=== PATIENT | female | born 1960 | race Caucasian/White ===

== ENCOUNTER → 2020-04-05 | Outpatient (CLI) | payer MEDICARE | LOC: M.RAD 12:33 | PROVIDERS: ATTEND Internal Medicine | DX: M17.11 Unilateral primary osteoarthritis, right knee (principal); M25.462 Effusion, left knee; M85.88 Other specified disorders of bone density and structure, other site ==

== ENCOUNTER 2020-08-12 04:51 | Inpatient (IN) | payer MEDICARE ==
[~2020-08-12] VITALS: Ht 149.9 cm; Wt 108.4 kg
[2020-08-12 05:03] VITALS: BP 121/73
[2020-08-12] MEDS ORDERED: METFORMIN HCL500 M3 PO (05:08)
[2020-08-12] MEDS ORDERED: LIPITOR10 MG PO (05:09)
[2020-08-12] MEDS ORDERED: LISINOPRIL10 MG PO (05:09)
[2020-08-12 05:32] LABS: URINE BILIRUBIN NEGATIVE (Negative); URINE BLOOD NEGATIVE (Negative); URINE CLARITY CLEAR; URINE COLOR YELLOW; URINE GLUCOSE-RANDOM NEGATIVE (Negative); URINE KETONES NEGATIVE (Negative); URINE LEUKOCYTES-REFLEX 1+ (Negative); URINE NITRITE-REFLEX NEGATIVE (Negative); URINE PROTEIN NEGATIVE (Negative); URINE SPECIFIC GRAVITY 1.015 (1.005-1.030); URINE UROBILINOGEN 0.2 E.U./dl (0.2-1.0)
[2020-08-12 05:45] LABS: BACTERIA-REFLEX 1-9 Few /HPF (None Seen); CASTS None Seen /LPF (None Seen); CRYSTALS None Seen /LPF (None Seen); MUCUS 0-3 Light strn/LPF (None Seen); SQUAMOUS 0-3 Few /LPF (0-3); URINE RBC 0-2 Rare /HPF (0-2)
[2020-08-12 05:58] LABS: ABSOLUTE BASOPHILS 0.1 thou/uL (0.0-0.2); ABSOLUTE EOSINOPHILS 0.1 thou/uL (0.0-0.7); ABSOLUTE LYMPHOCYTES 0.9 thou/uL (0.8-5.3); ABSOLUTE MONOCYTES 0.5 thou/uL (0.0-1.2); ABSOLUTE NEUTROPHILS 8.4 thou/uL (1.6-8.1); BASOPHILS 0.9 %; EOSINOPHILS 1.1 %; HEMOGLOBIN 13.4 gm/dL (12.0-15.0); LYMPHOCYTES 9.2 %; MCH 26.4 pg (26.0-34.0); MCHC 32.7 g/dL (28.0-37.0); MCV 80.6 fL (80.0-100.0); MONOCYTES 5.1 %; MPV 8.8 fl. (7.2-11.1); NUCLEATED RBCS 0 /100WBC; PLATELET COUNT* 231 thou/uL (150-400); POLYS 83.7 %; RBC 5.08 mil/uL (4.20-5.00); RDW-CV 14.7 % (10.5-14.5); WBC 10.1 thou/uL (4.0-11.0)
[2020-08-12 06:00] LABS: CALCIUM 9.3 mg/dL (8.5-10.1); CREATININE 1.1 mg/dL (0.6-1.3); POTASSIUM 4.2 mmol/L (3.5-5.1)
[2020-08-12 06:03] LABS: APTT 26.5 Seconds (25.0-31.3); INR 1.1; PROTIME 11.2 Seconds (9.20-11.50)
[2020-08-12 06:04] LABS: ALBUMIN 3.5 g/dL (3.4-5.0); TOTAL BILIRUBIN 1.2 mg/dL (<0.1-1.0); TOTAL PROTEIN 7.2 g/dL (6.4-8.2)
--- NOTE | 2020-08-12 08:13 | NUR ---
ROMEL NOTIFIED UPON PT RETURN FROM CT. PT CONNECTED TO MONITOR
[2020-08-12 13:15] VITALS: BP 124/75
[2020-08-12 14:32] VITALS: BP 117/60
[2020-08-12 15:09] VITALS: BP 124/68
--- NOTE | 2020-08-12 15:14 | NUR ---
PT IN PRE OP AREA HOLDING AWAITING ROOM PLACEMENT. CALL LIGHT IN REACH. BED ALARM ON. PT SLEEPING INTERMITTENLY AND WATCHING TV INTERMITTENLY. INSTRUCTED TO CALL FOR ANY NEEDS. REPORTED RECEIVING PAIN MEDICATION IN ER, NO NEED FOR PAIN MEDICATION AT THIS TIME. AMBULATED TO BATHROOM WITH STEADY GAIT UPON ARRIVAL. VOIDED WITHOUT DIFFICULTY.
--- NOTE | 2020-08-12 16:21 | NUR ---
SISTER LAKIA CALLED FOR CONDITION UPDATE. UPDATE PROVIDED. SISTER ABLE TO PROVIDE INFORMATION REGARDING PT COGNITIVE LEVEL, REPORTING SHE IS "SLOW AND EMOTIONAL". SHE HAD A (COLON) POUCH APPROXIMATELY 20 YEARS AGO THAT WAS CONVERTED TO AN OSTOMY APPROXIMATELY 3 YEARS AGO. PT LIVES WITH SISTER AND MOM.
--- NOTE | 2020-08-12 17:11 | EKG ---
[place] [address] ELECTROCARDIOGRAM REPORT Name: JENNIFER GUEVARA Room: [place] [address] ADM IN [facility]#: [id number] Admission: 08/12/20 Attend Phys: Vijay Feng, Discharge: Date of : 64 Date of Service: 08/12/20 0502 Report #: [id number] THIS REPORT FOR: //name// [facility] ED Test Date: 2020-08-12 Test Time: 05:02:42 Pat Name: JENNIFER GUEVARA Department: Room: [facility] Gender: F Resawyer: BERNIE : 1960 Requested By: Cecile Moody Order Number: [id number] MD: Nicholas Aguilar Measurements Intervals [place] Rate: 92 P: 28 MI: 187 QRS: -39 QRSD: 93 T: 58 QT: 331 QTc: 410 Interpretive Statements Sinus rhythm RSR' in V1 or V2, probably normal variant Consider anterior infarct old No previous ECG available for comparison Electronically Signed On 08-12-2020 17:11:06 VEST BASTER by Nicholas Aguilar [email or web address] <ELECTRONICALLY SIGNED> By: Nicholas Aguilar MD, [facility] 08/12/20 1711 0502 0502 Nicholas Aguilar MD, [facility] /EPI
[2020-08-12 19:00] VITALS: BP 109/59; BP 120/71
--- NOTE | 2020-08-12 19:36 | NUR ---
TRANSFERRED PT TO ROOM 309. REMAINS NPO. EMESIS X2 OF SMALL AMOUNT YELLOW/GREEN. RECEIVED RELIEF FROM ZOFRAN AND FENTANYL. REPORT TO RN AT BEDSIDE.
[2020-08-13 04:43] LABS: ABSOLUTE EOSINOPHILS 0.1 thou/uL (0.0-0.7); ABSOLUTE LYMPHOCYTES 0.8 thou/uL (0.8-5.3); ABSOLUTE MONOCYTES 0.6 thou/uL (0.0-1.2); ABSOLUTE NEUTROPHILS 4.8 thou/uL (1.6-8.1); BASOPHILS 0.6 %; EOSINOPHILS 1.8 %; HEMATOCRIT 39.3 % (37.0-47.0); HEMOGLOBIN 13.1 gm/dL (12.0-15.0); LYMPHOCYTES 12.4 %; MCH 26.8 pg (26.0-34.0); MCHC 33.2 g/dL (28.0-37.0); MCV 80.5 fL (80.0-100.0); MONOCYTES 8.9 %; MPV 9.1 fl. (7.2-11.1); NUCLEATED RBCS 0 /100WBC; PLATELET COUNT* 194 thou/uL (150-400); POLYS 76.3 %; RBC 4.88 mil/uL (4.20-5.00); RDW-CV 14.5 % (10.5-14.5); WBC 6.3 thou/uL (4.0-11.0)
[2020-08-13 05:40] LABS: CALCIUM 8.9 mg/dL (8.5-10.1); CREATININE 1.1 mg/dL (0.6-1.3)
[2020-08-13 07:20] VITALS: BP 110/67
--- NOTE | 2020-08-13 08:30 | NUR ---
PATIENT HAS BEEN RESTLESS DURING THE NIGHT AND VERY ANXIOUS AND TEARFUL. PATIENT EXTREMELY NEEDY AND PRINCIPAL GIFTS OFFICER LIGHT EXCESSIVELY DURING THE NIGHT. VSS ON RA. PATIENT UP WITH ASSIST X 1 TO THE BATHROOM. PATIENT HAS REMAINED NPO. ILEOSTOMY WITH GREENISH COLORED STOOL. IV IN LEFT HAND-NS @ 100ML/HR. MEDICATIONS GIVEN ORDERED AND CHARTED. PATIENT INSTRUCTED TO USE CALL LIGHT WHEN NEEDING ASSISTANCE. HOURLY ROUNDS MADE. WILL CONTINUE WITH PLAN OF CARE AND NURSING TO MONITOR.
[2020-08-13 12:58] LABS: DIRECT BILIRUBIN 0.2 mg/dL (<0.1-0.3); TOTAL BILIRUBIN 0.8 mg/dL (<0.1-1.0)
[2020-08-13 16:11] VITALS: BP 118/59
--- NOTE | 2020-08-13 17:09 | NUR ---
PT REMAINED ALERT AND ORIENTED. PT C/O PAIN, MEDS GIVEN ORDERED. PT TOOK CARE OF ILEOSTOMY BY HERSELF. ASSISTED TO BATHROOM. IV INFILTRATED, NEW IV PLACED. HOURLY ROUNDING COMPLETED.
--- NOTE | 2020-08-13 17:42 | NUR ---
CM SPOKE WITH SISTER,LAKIA, ON PHONE. SHE SAID PT.LIVES WITH HER AND MOM. SHE IS INDEPENDENT. IS ABLE TO BATHE SELF AND DRESS. NO USE OF DME. SHE HAS A WALKER BUT DOESNT USE. SHE SAID SHE HAS ALWAYS BEEN SLOW AND VERY EMOTIONAL. 'THATS HOW SHES ALWAYS BEEN'. LAKIA SAID BOTH SHE AND HER MOM SPOKE WITH PT.ABOUT HAVING SURGERY AND SHE IS NOW AGREEABLE. THEY WOULD LIKE TO KNOW WHEN SHE WILL HAVE IT, IF SOMEONE WOULD CALL HER TOMORROW. TOLD HER THERE ARE NO PLANS YET FOR SURGERY BUT THAT COULD CHANGE IN THE AM. HAS NOT BEEN MADE MPO AFTER MN YET. CM WILL FOLLOW.
[2020-08-13 18:13] VITALS: BP 118/59
[2020-08-13 20:00] VITALS: BP 120/62
[2020-08-14 04:41] VITALS: BP 135/70
[2020-08-14 05:33] LABS: ABSOLUTE EOSINOPHILS 0.2 thou/uL (0.0-0.7); ABSOLUTE LYMPHOCYTES 0.6 thou/uL (0.8-5.3); ABSOLUTE MONOCYTES 0.3 thou/uL (0.0-1.2); ABSOLUTE NEUTROPHILS 2.2 thou/uL (1.6-8.1); BASOPHILS 0.7 %; EOSINOPHILS 6.4 %; HEMOGLOBIN 11.6 gm/dL (12.0-15.0); LYMPHOCYTES 18.4 %; MCH 26.9 pg (26.0-34.0); MCHC 33.1 g/dL (28.0-37.0); MCV 81.4 fL (80.0-100.0); MONOCYTES 9.3 %; MPV 8.8 fl. (7.2-11.1); NUCLEATED RBCS 0 /100WBC; PLATELET COUNT* 164 thou/uL (150-400); POLYS 65.2 %; RDW-CV 15.2 % (10.5-14.5); WBC 3.4 thou/uL (4.0-11.0)
--- NOTE | 2020-08-14 06:09 | NUR ---
PATIENT AWAKE OFF AND ON DURING THIS SHIFT. PT VERY TEARY EYED ABOUT SURGERY; SUPPORT GIVEN. MORPHINE 4MG IV GIVEN X3 DURING THIS SHIFT. PT WITH FLUIDS/ANTIBIOTICS INFUSING PER DR ORDER. PT ABLE TO PIVOT TO BSC TO VOID AND EMPTIES ILEOSTOMY. PT WITH LT HAND/FOREARM EDEMA FROM PREVIOUS IV SITE. NEW IV STARTED ON DAY SHIFT JUST ABOVE REDDENED SWOLLEN AREA. PT ENCOURAGED TO KEEP ARM ELEVATED. PT MADE NPO AT MIDNIGHT FOR LAP CESAR SCHEDULED TODAY. FREQUENTLY USED ITEMS AND CALL LIGHT WITHIN REACH. SIDERAILS UPX2. WILL CONTINUE TO MONITOR.
[2020-08-14 06:11] LABS: ALBUMIN 2.6 g/dL (3.4-5.0); CREATININE 1.1 mg/dL (0.6-1.3); POTASSIUM 3.5 mmol/L (3.5-5.1); TOTAL BILIRUBIN 0.7 mg/dL (<0.1-1.0); TOTAL PROTEIN 6.4 g/dL (6.4-8.2)
[2020-08-14 06:20] LABS: CALCIUM 8.5 mg/dL (8.5-10.1)
[2020-08-14 07:35] VITALS: BP 118/59; BP 150/79
[2020-08-14 12:09] VITALS: BP 118/59
--- NOTE | 2020-08-14 12:25 | NUR ---
NOTIFIED LAKIA,PTS SISTER,BY PHONE THAT PT.HAD GONE FOR SURGERY ABOUT 1200. SHE SAID SHE IS AT WORK BUT CAN COME AFTER SHE GETS OFF. TOLD HER PT.MAY BE BACK TO FLOOR ABOUT 3PM. SHE SAID WILL COME WHEN SHE GETS OFF IN AN HR.
--- NOTE | 2020-08-14 16:07 | NUR ---
PT RETURNED FROM SURGERY. PT ALERT AND ORIENTED. CAPNO IN PLACE WITH 3 LITERS O2. PAIN MEDS GIVEN ORDERED. PT RESTING IN BED. FALL RISK PRECAUTIONS IN PLACE.
[2020-08-14 16:10] VITALS: BP 123/73
--- NOTE | 2020-08-14 16:49 | NUR ---
PT REMAINED ALERT AND ORIENTED. PT RESTING IN BED. PT HAD STENT PLACED IN GALLBLADDER AND DRAIN PRESENT. PAIN MEDS GIVEN ORDERED. FALL RISK PRECAUTIONS IN PLACE. HOURLY ROUNDING COMPLETED.
[2020-08-14 20:00] VITALS: BP 127/63
--- NOTE | 2020-08-15 04:25 | NUR ---
PATIENT SLEPT WELL DURING THIS SHIFT. PT WITH O2 @ 3LITERS WITH CAPNO IN PLACE. PT WITH FLUIDS/ANTIBIOTICS INFUSING PER DR ORDER. PT REQUESTED PAIN MEDICATION X3. PT REFUSING TURNS SAYING SHE IS ABLE TO REPOSITION HERSELF. PT WITH GREEN STOOL FROM OSTOMY BAG. PT VOIDED SMALL AMOUNTS AT A TIME ON BSC. LAP SITES WITH STERI STRIPS; C/D/I. BLOOD SUGAR AT 2100 = 160; HUMALOG 3UNITS GIVEN. FREQUENTLY USED ITEMS AND CALL LIGHT WITHIN REACH. SIDERAILS UPX3 AND BED ALARM ON. WILL CONTINUE TO MONITOR.
[2020-08-15 08:22] VITALS: BP 124/68
--- NOTE | 2020-08-15 16:15 | NUR ---
PT.HAD LAP CESAR YESTERDAY. ON 3L/NC 02. DOES NOT WEAR O2 AT HOME. ON REGULAR DIET. ENCOURAGED TO BE UP WITH ASSIST OR IN HALLS WITH ASSIST.
[2020-08-15 16:20] VITALS: BP 158/62
--- NOTE | 2020-08-15 18:45 | NUR ---
PATIENT CURRENTLY LYING IN BED RESTING; HAS REMAINED A&OX4 THIS SHIFT AND HAS SLEPT MOST OF THIS SHIFT. PATIENT HAS NOT WANTED TO EAT MEALS SHE STATES "IT HURTS". ABDOMINAL DRESSING CHANGED PER DR. SHULTZ REQUEST. PATIENT NO LONGER ON OXYGEN AND SATURATIONS ARE WNL. CALL LIGHT AND FREQUENTLY USED ITEMS WITHIN REACH.
[2020-08-15 20:00] VITALS: BP 112/74
[2020-08-16] VITALS: BP 104/56
--- NOTE | 2020-08-16 04:46 | NUR ---
PT A&O, ANXIOUS AND TEARFUL. NO C/O NAUSEA VOMITIING. PAIN MANAGED WITH NORCO. RLQ ROBERT DRAIN IN PLACE. DRESSING INTACT. UP TO BSC WITH SBA. IVF INFUISING. CALL LIGHT WITHIN REACH. WILL CONTINUE TO MONITOR.
[2020-08-16 04:58] LABS: HEMATOCRIT 36.3 % (37.0-47.0); HEMOGLOBIN 12.2 gm/dL (12.0-15.0); MCHC 33.7 g/dL (28.0-37.0); MCV 80.2 fL (80.0-100.0); MPV 8.7 fl. (7.2-11.1); RBC 4.53 mil/uL (4.20-5.00); RDW-CV 14.6 % (10.5-14.5); WBC 4.6 thou/uL (4.0-11.0)
[2020-08-16 05:14] LABS: CALCIUM 7.8 mg/dL (8.5-10.1); CREATININE 1.2 mg/dL (0.6-1.3); POTASSIUM 3.8 mmol/L (3.5-5.1)
[2020-08-16 08:08] VITALS: BP 118/73
--- NOTE | 2020-08-16 08:56 | OP ---
[facility] [address] [place] [address] OPERATIVE REPORT Name: JENNIFER GUEVARA Room: [address] IN M.R.#: [id number] Admission: 08/12/20 Attend Phys: Vijay Feng MD Discharge: Date of : 64 Report #: [id number] THIS REPORT FOR: cc: Mary Winn MD, Lin W. MD ~ Wili Crawford MD DATE OF SERVICE: 08/14/2020 PREOPERATIVE DIAGNOSIS: Acute cholecystitis. POSTOPERATIVE DIAGNOSIS: Acute cholecystitis. OPERATION: Laparoscopic cholecystostomy. SURGEON: Wili Crawford MD. ANESTHESIA: General. ESTIMATED BLOOD LOSS: Minimal. SPECIMEN: None. DESCRIPTION OF PROCEDURE: After informed consent was obtained, the patient was brought to the operating room and placed supine. SCDs were placed and working, preoperative antibiotics were administered, general anesthesia was induced. The abdomen was prepped and draped in the usual sterile fashion. A 1 mm incision was made in the right upper quadrant. Veress needle was inserted. Pneumoperitoneum was established. I was then able to place a supraumbilical 5 mm trocar under direct vision. Two right-sided 5 mm trocars were placed as well. The gallbladder was visualized. This was noted to be a very inflamed and hydropic and enlarged consistent with the CT scan. I tried to grasp it, but given the patient's anatomy and the large size of the gallbladder, I was not able to get any sort of lift on the gallbladder. Given the degree of inflammation, I thought the best thing was to perform a cholecystostomy thereby preventing injury to the common bile duct. A small hole was made in the gallbladder. A 10-[place] Citizen drain was placed through one of the laparoscopic ports. It was then threaded into the gallbladder. The ports were then removed under direct vision. The drain was secured with a nylon suture. The skin was closed with 4-0 Monocryl. Incisions were dressed with Steri-Strips. COMPLICATIONS: [place] [address] OPERATIVE REPORT Name: JENNIFER GUEVARA Room: [address] IN [facility]#: [id number] Admission: 08/12/20 Attend Phys: Vijay Feng MD Discharge: Date of : 64 Report #: [id number] DISPOSITION: The patient was taken to recovery in satisfactory condition. <ELECTRONICALLY SIGNED> By: Wili Crawford MD 08/16/20 0856 1427 1502Wili Crawford MD /nt
[2020-08-16] MEDS ORDERED: AUGMENTIN 875-1 EACH PO (12:42)
[2020-08-16] MEDS ORDERED: HYDROCODON-ACE1 EAC7 PO (13:07)
--- NOTE | 2020-08-16 15:13 | NUR ---
PT.TO DISCHARGE TODAY. NOTIFIED SISTER LAKIA. SHE WILL COME TO PICK HER UP IN ABOUT 2 HRS. EXPLAINED NURSE WILL SHOW HER HOW TO EMPTY DRAIN WHEN SHE GETS HERE. PT.WILL HAVE X 1 WEEK UNTIL SHE FOLLOWS UP WITH SURGEON.
[2020-08-16 15:18] VITALS: BP 118/73
[2020-08-16 15:56] VITALS: BP 118/73
--- NOTE | 2020-08-16 16:52 | NUR ---
PATIENT/SISTER GIVEN DISCHARGE INSTRUCTIONS AND PRESCRIPTIONS FOR AUMGENTING AND NORCO, ALSO, PROVIDED INFO SHEETS ON BOTH MEDICATIONS. SISTER/PATIENT SHOWN HOW TO EMPTY ROBERT DRAIN, VERBALIZED UNDERSTANDING. IV REMOVED. PATIENT LEFT UNIT WITH PERSONAL BELONGINGS VIA WHEELCHAIR ACCOMPANIED BY NURSING STAFF AND SISTER AT APPROX. 1650.
== END 2020-08-16 16:50 | disposition home or self-care (01) | DRG 418 ==
LOC: M.ERS 04:51 → M.3W 09:04 → M.TBA-ER 09:04 → M.ORTHSURG 20:00 → M.3W 20:23
PROVIDERS: Family Medicine; Personal Emergency Response Attendant; ADMIT Internal Medicine; ATTEND Internal Medicine
PROC: 0FT44ZZ Resection of Gallbladder, Percutaneous Endoscopic Approach (ICD-10-PCS; principal; 2020-08-14)
DX: K81.0 Acute cholecystitis (principal); R65.10 Systemic inflammatory response syndrome (SIRS) of non-infectious origin without acute organ dysfunction; Z68.42 Body mass index [BMI] 45.0-49.9, adult; E66.01 Morbid (severe) obesity due to excess calories; I10 Essential (primary) hypertension; E78.5 Hyperlipidemia, unspecified; F79 Unspecified intellectual disabilities; E11.9 Type 2 diabetes mellitus without complications; F41.9 Anxiety disorder, unspecified; F43.9 Reaction to severe stress, unspecified; Z20.822 Contact with and (suspected) exposure to COVID-19; Z85.038 Personal history of other malignant neoplasm of large intestine; Z79.899 Other long term (current) drug therapy

== ENCOUNTER 2020-11-25 23:40 | Inpatient (IN) | payer MEDICARE ==
[~2020-11-25] VITALS: Ht 149.9 cm; Wt 54.4 kg
[~2020-11-25 23:40] MED LIST: AUGMENTIN 875-1 EACH PO; HYDROCODON-ACE1 EAC7 PO; LIPITOR10 MG PO; LISINOPRIL10 MG PO; METFORMIN HCL500 M3 PO
[2020-11-25 23:58] VITALS: BP 137/74
[2020-11-26 00:43] LABS: URINE BILIRUBIN NEGATIVE (Negative); URINE BLOOD 3+ (Negative); URINE CLARITY SL CLOUDY; URINE COLOR YELLOW; URINE GLUCOSE-RANDOM NEGATIVE (Negative); URINE KETONES NEGATIVE (Negative); URINE PROTEIN 2+ (Negative); URINE UROBILINOGEN 0.2 E.U./dl (0.2-1.0)
[2020-11-26 00:46] LABS: URINE LEUKOCYTES-REFLEX 2+ (Negative); URINE NITRITE-REFLEX POSITIVE (Negative)
[2020-11-26 01:02] LABS: ABSOLUTE BASOPHILS 0.1 thou/uL (0.0-0.2); ABSOLUTE EOSINOPHILS 0.2 thou/uL (0.0-0.7); ABSOLUTE LYMPHOCYTES 0.8 thou/uL (0.8-5.3); ABSOLUTE MONOCYTES 0.4 thou/uL (0.0-1.2); ABSOLUTE NEUTROPHILS 4.3 thou/uL (1.6-8.1); BASOPHILS 1.1 %; EOSINOPHILS 2.7 %; HEMATOCRIT 37.4 % (37.0-47.0); HEMOGLOBIN 12.4 gm/dL (12.0-15.0); LYMPHOCYTES 13.3 %; MCH 26.8 pg (26.0-34.0); MCHC 33.2 g/dL (28.0-37.0); MCV 80.7 fL (80.0-100.0); MONOCYTES 7.8 %; MPV 7.2 fl. (7.2-11.1); NUCLEATED RBCS 0 /100WBC; PLATELET COUNT* 243 thou/uL (150-400); POLYS 75.1 %; RBC 4.63 mil/uL (4.20-5.00); WBC 5.7 thou/uL (4.0-11.0)
[2020-11-26 01:10] LABS: CALCIUM 9.2 mg/dL (8.5-10.1); POTASSIUM 4.3 mmol/L (3.5-5.1)
[2020-11-26 01:36] LABS: CASTS None Seen /LPF (None Seen); SQUAMOUS 4-10 Moderate /LPF (0-3); URINE WBC-REFLEX >25 Many /HPF (0-5)
[2020-11-26 01:37] LABS: CRYSTALS None Seen /LPF (None Seen)
--- NOTE | 2020-11-26 08:11 | NUR ---
PT REQUESTING FOR THIS NURSE TO CALL HER MOTHER, AMARIS GUEVARA [phone] TO GIVE HER AN UPDATE.
[2020-11-26 08:59] VITALS: BP 155/74
--- NOTE | 2020-11-26 10:45 | NUR ---
PT ADMITTED WITH UTI AND KIDNEY STONE. PT ALERT AND ORIENTED. PT ORIENTED TO ROOM. UROLOGY CONSULT BEING CALLED IN, AWAITING ANSWERING SERVICE TO ANSWER.
[2020-11-26 10:48] VITALS: BP 144/58
--- NOTE | 2020-11-26 17:57 | NUR ---
PT REMAINED ALERT AND ORIENTED. PT TEARFUL DURING SHIFT AND ANXIOUS TO GET STONES OUT. PROCEDURE AT 1600, PT OFF UNIT AWAITING PT TO RETURN FROM RECOVERY. FAMILY AT BEDSIDE.
[2020-11-26 18:42] VITALS: BP 145/67
[2020-11-27 00:24] VITALS: BP 124/60
[2020-11-27 04:42] VITALS: BP 114/71
[2020-11-27 04:55] LABS: HEMATOCRIT 34.2 % (37.0-47.0); HEMOGLOBIN 11.5 gm/dL (12.0-15.0); MCH 26.9 pg (26.0-34.0); MCHC 33.6 g/dL (28.0-37.0); MCV 80.3 fL (80.0-100.0); MPV 7.9 fl. (7.2-11.1); RBC 4.26 mil/uL (4.20-5.00); RDW-CV 15.9 % (10.5-14.5); WBC 6.5 thou/uL (4.0-11.0)
--- NOTE | 2020-11-27 04:59 | NUR ---
PATIENT SLEPT WELL DURING THIS SHIFT. [facility] US[facility] FOR [facility] TO B[facility]. PT VOIDS RED URINE. URINE STRAINED AND NO STONES RETRIEVED. PT ON O2 @ 2 LITERS PER NASAL CANNULA. FLUIDS INFUSING PER DR ORDER. PT WITH COLOSTOMY ON LT QUAD; PT DOES SELF CARE. PT REQUESTED PAIN MEDICATION AND RECEIVED FENTANYL IV X2. FREQUENTLY USED ITEMS AND CALL LIGHT WITHIN REACH. SIDERAILS UPX2 AND BED ALARM ON. WILL CONTINUE TO MONITOR.
[2020-11-27 05:20] LABS: ALBUMIN 3.1 g/dL (3.4-5.0); CALCIUM 8.4 mg/dL (8.5-10.1); CREATININE 1.2 mg/dL (0.6-1.3); MAGNESIUM 1.5 mg/dL (1.8-2.4); POTASSIUM 4.1 mmol/L (3.5-5.1); TOTAL BILIRUBIN 0.4 mg/dL (<0.1-1.0); TOTAL PROTEIN 7.3 g/dL (6.4-8.2)
[2020-11-27 07:15] VITALS: BP 121/71
--- NOTE | 2020-11-27 11:51 | NUR ---
Pt is A&O. Resides at home with sister, FRED and mom. Independent. Pt states that she has a walker but doesn't use it. Hx of HH. Hx of SNF in [place]. Goal is home at dc, unsure if she will need HH at dc, CM to follow. Monitor pain control. Anticipate dc in a few days.
[2020-11-27 17:31] VITALS: BP 150/90
--- NOTE | 2020-11-27 18:25 | NUR ---
ASSUMED CARE OF PATIENT AT 1500, RECEIVED REPORT FROM BRISA. PATIENT RESTING IN BED. PATIENT HAS COMPLAINTS OF FLANK PAIN, TREATED ADEQUATELY WITH OXYCODONE. PATIENT HAS EXCELLENT APPETITE. PATIENT IS UP AD SHYLA TO COMMODE. PATIENT IS TEARFUL. PATIENT DENIES ANY NEEDS AT THIS TIME. CALL LIGHT WITHIN REACH.
[2020-11-27 20:30] VITALS: BP 137/67
[2020-11-28 04:28] VITALS: BP 116/60
--- NOTE | 2020-11-28 07:34 | NUR ---
PATIENT HAS SLEPT MOST OF THE NIGHT. VSS ON RA, ALTHOUGH PATIENT HAD ELEVATED TEMP AND GIVEN TYLENOL. TEMP CAME DOWN TO 98.9. MEDICATIONS GIVEN ORDERED AND CHARTED. COLOSTOMY IN PLACE AND PATIENT DOES SELF CARE. PATIENT UP TO BSC. IV IN LEFT AC-SL. PATIENT TEARFUL WHEN AWAKE. PATIENT INSTRUCTED TO USE CALL LIGHT WHEN NEEDING ASSISTANCE. HOURLY ROUNDS MADE. WILL CONTINUE WITH PLAN OF CARE AND NURSING TO MONITOR.
[2020-11-28 07:40] VITALS: BP 140/70
[2020-11-28] MEDS ORDERED: FLOMAX0.4 MG PO (09:29)
[2020-11-28] MEDS ORDERED: LORAZEPAM 0.50.5 MG PO (09:29)
[2020-11-28] MEDS ORDERED: OXYCODONE HCL 55 MG PO (09:29)
[2020-11-28] MEDS ORDERED: CIPRO500 M1 PO (09:29)
[2020-11-28 11:21] VITALS: BP 140/70
--- NOTE | 2020-11-28 14:58 | OP ---
[address] [address] OPERATIVE REPORT Name: JENNIFER GUEVARA Room: [address] IN M.R.#: [id number] Admission: 11/27/20 Attend Phys: Pj Cruz Discharge: Date of : 64 Report #: [id number] THIS REPORT FOR: cc: Mary Winn MD, Lin W. MD Haggard, Kent L MD ~ DOC #: [id number] Rajendra Patel MD DATE OF SURGERY: 11/26/2020 PREOPERATIVE DIAGNOSES: A 5 mm distal left ureteral stone and 6 mm proximal right ureteral stone. POSTOPERATIVE DIAGNOSES: A 5 mm distal left ureteral stone and 6 mm proximal right ureteral stone. PROCEDURE PERFORMED: Cystoscopy, left ureteroscopy with stone extraction, placement of left ureteral stent, right ureteroscopy with right ureteral stent. STAFF SURGEON: Rajendra Patel MD SYRUP MAKER COOK: None. ANESTHESIA: General. ESTIMATED BLOOD LOSS: None. COMPLICATIONS: None. SPECIMENS: Left ureteral stone fragment. DRAINS: A 28 cm x 4.8-V[place] Citizen left ureteral stent and a 28 x 6-[place] Citizen right ureteral stent. INDICATIONS FOR PROCEDURE: The patient is a pleasant 60-year-old female with history of kidney stones, presented with acute onset of left flank pain. She presented to [facility] where she was diagnosed with bilateral ureteral stones. We were consulted to assist and manage evaluation. She was counseled regarding treatment options, elected for definitive cystoscopy, bilateral retrograde pyelograms, bilateral ureteroscopy, possible holmium laser lithotripsy, possible placement of bilateral ureteral stents. After the risks and benefits of the procedure explained, an informed consent was obtained. DESCRIPTION OF PROCEDURE: The patient was taken to the operating room comfortably placed in the dorsal lithotomy position under adequate general anesthesia. She was sterilely prepped and [place] [address] OPERATIVE REPORT Name: JENNIFER GUEVARA Room: [address] IN [facility]#: [id number] Admission: 11/27/20 Attend Phys: Pj Cruz Discharge: Date of : 64 Report #: [id number] only genitalia. She is up to date on antibiotic therapy. An appropriate timeout was carried out and all were in agreement. A 22-[place] Citizen cystoscope with the obturator in place was inserted into the urethra. Obturator was removed, draining clear tobi colored urine. Bladder was systematically viewed. Both ureteral orifices identified normal. No bladder calculi seen or foreign body observed. I attempted to cannulate the left ureteral orifice, there was kind of a posterior angulation and was hard to cannulate. So, the cystoscope was removed and a 4.5 [place] Citizen tapered to 6.5 [place] Citizen [place] semi-rigid ureteroscope, it was placed through the urethra up the left ureter and engaged the stone to identify, it was kind of pushed it into the distal ureter, it was more dilated. We went ahead and scoped the rest of the ureter up in the proximal ureter. The scope was tapered so it kind of gently dilated the transmural ureter. An 0.035 Glidewire was placed through the ureteroscope. The ureteroscope was removed leaving the guidewire in place. Semirigid scope was placed through the urethra up the left ureter to the level of the stone. A 2.4 [place] Citizen flat wire basket was used to engage the stone, slowly removed it intact without difficulty. This was sent off for analysis. Repeat ureteroscopy showed no damage to the ureter. Ureteroscope was removed and a 28 cm x 4.8 [place] Citizen ureteral stent was put in place, positioned with a good coil in left renal pelvis, good coil in the bladder. Attention was then turned to the right ureteral orifice, again it was kind of anteriorly, laterally oriented. Rather than trying cannulate this, I went ahead and just used the semi-rigid ureteroscope, placed through the urethra up the left ureter and slowly advanced it through the transmural ureter up the ureter about the iliac vessels, but really could not get any further. 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 I could not really get the ureteroscope past the iliac vessels. An 0.035 Glidewire was advanced up the right ureter. The rigid scope was removed and a 28 cm x 6-V[place] Citizen ureteral stent was put in place and positioned with good coil in right renal pelvis, good coil in the bladder. The bladder was drained, cystoscope was then removed. She tolerated it extremely well. She was extubated in the operating room, transferred to [facility] with assistance and went to recovery in stable condition. We will see her back for cystoscopy, right stent removal, right ureteroscopy, possible holmium laser lithotripsy, possible placement of a right ureteral stent. Rajendra Patel MD [facility] <ELECTRONICALLY SIGNED> By: Rajendra Patel MD 11/28/20 1458 1634 1725Rajendra Patel MD /nt
[2020-11-28 16:00] VITALS: BP 138/68
--- NOTE | 2020-11-28 17:42 | NUR ---
PATIENT RESTING IN BED. PATIENT IS DISCHARGING AND WAITING FOR SISTER TO PICK HER UP. PATIENT'S PAIN IS CONTROLLED WITH OXYCODONE. PATIENT IS UP AD SHYLA IN ROOM. PATIENT IS TEARFUL AND CALLS OUT FREQUENTLY FOR ASSISTANCE WITH BLANKETS AND FOOD. IV IS REMOVED. CALL LIGHT WITHIN REACH.
--- NOTE | 2020-11-28 18:51 | NUR ---
PATIENT DISCHARGED TO HOME. DISCHARGE PAPERS REVIEWED AND SIGNED. PRESCRIPTIONS AND INFORMATION SHEETS GIVEN. IV REMOVED. PATIENT TAKEN BY WHEELCHAIR TO EXIT. LEFT WITH SISTER.
[2020-11-28 18:52] VITALS: BP 140/70
== END 2020-11-28 18:30 | disposition home or self-care (01) | DRG 660 ==
LOC: M.ERS 23:40 → M.TBA-ER 11-26 05:49 → M.ORTHSURG 11-26 09:35
PROVIDERS: Emergency Medicine; Internal Medicine; ADMIT Internal Medicine; ATTEND Internal Medicine
PROC: 0TC78ZZ Extirpation of Matter from Left Ureter, Via Natural or Artificial Opening Endoscopic (ICD-10-PCS; principal; 2020-11-26)
PROC: BT1F1ZZ Fluoroscopy of Left Kidney, Ureter and Bladder using Low Osmolar Contrast (ICD-10-PCS; principal; 2020-11-26)
PROC: 0T788DZ Dilation of Bilateral Ureters with Intraluminal Device, Via Natural or Artificial Opening Endoscopic (ICD-10-PCS; principal; 2020-11-26)
DX: N13.6 Pyonephrosis (principal); R65.10 Systemic inflammatory response syndrome (SIRS) of non-infectious origin without acute organ dysfunction; E44.1 Mild protein-calorie malnutrition; Z20.822 Contact with and (suspected) exposure to COVID-19; I10 Essential (primary) hypertension; E78.5 Hyperlipidemia, unspecified; E11.9 Type 2 diabetes mellitus without complications; Z93.3 Colostomy status; Z79.899 Other long term (current) drug therapy; Z68.24 Body mass index [BMI] 24.0-24.9, adult

== ENCOUNTER 2020-12-03 16:00 | Observation (INO) | payer MEDICARE ==
[~2020-12-03] VITALS: Ht 149.9 cm; Wt 90.7 kg
--- NOTE | ~2020-12-03 | OP ---
[address] [address] OPERATIVE REPORT Name: JENNIFER GUEVARA Room: [address] [place]#: [id number] Admission: 12/03/20 Attend Phys: Pj oRberson Discharge: 12/05/20 Date of : 64 Report #: [id number] THIS REPORT FOR: cc: Mary Winn MD, Lin W. MD Wright, Andrew D. MD ~ DATE OF SERVICE: 12/04/2020 PREOPERATIVE DIAGNOSES: Flank pain, right ureteral calculus, left indwelling stent. POSTOPERATIVE DIAGNOSIS: Flank pain, right ureteral calculus, left indwelling stent. PROCEDURE: Cystoscopy with left stent removal, right ureteroscopy with laser stone manipulation, double-J stent, fluoroscopy. SURGEON: Mark Cantrell MD ANESTHESIA: General. COMPLICATIONS: None. DRAINS: Right 6 x 28 double-J stent. FINDINGS: Completely duplicated right collecting system, lower pole moiety had obstructing stone within it that was treated with laser. HISTORY: This is a 60-year-old female who was seen by my associate at [facility] and had left ureteroscopy with basket stone extraction and bilateral ureteral stents placed a few weeks ago and came back with worsening back pain and flank pain, dysuria from stent discomfort and now presents for definitive management of her condition with a left stent removal and right ureteroscopy with laser stone manipulation. Risks, benefits, expected outcomes and alternatives explained. Informed consent given. OPERATIVE PROCEDURE: She was taken back to the operating room and given preoperative antibiotics and general anesthetic, prepped and draped in standard sterile fashion in dorsal lithotomy position on the operating table. Surgical timeout was performed. I reviewed her CT scan and showed no evidence of a stone on her left side. Her right side had some hydronephrosis and obstructing stone and a stent in place. She was prepped and [place] [address] OPERATIVE REPORT Name: JENNIFER GUEVARA Room: [address] [place]#: [id number] Admission: 12/03/20 Attend Phys: Pj Roberson Discharge: 12/05/20 Date of : 64 Report #: [id number] I performed panendoscopy and cystoscopy of her bladder and a little bit cloudy urine was seen, but it was irrigated out. I removed her left stent without difficulty. I removed her right stent out to the meatus and passed a guidewire through it and passed it up into the kidney. Over that, I passed a 4.5 Urdu semirigid ureteroscope and was able to only get to the iliac vessels as it was tight here with her body habitus, I was able to then pass a second guidewire and over that second guidewire, passed an 8-Urdu digital ureteroscope that was flexible up into the kidney. There, I irrigated it out and only a little bit of mucus was seen, but there was no evidence of any stone. I withdrew my scope and withdrew my wires. Having not seen a stone, I continued to investigate and it appeared that she had a completely duplicated system with a lower pole ureteral orifice just behind the upper pole ureteral orifice, but very hidden. I was able to carefully manipulate a guidewire into this and passed it up beyond the level of the visible stone that was seen in the upper quadrant. I shot contrast up through an open-ended catheter and could see that there was definitely a filling defect here. I was able to replace my guidewire. Alongside the guidewire, I passed my 4.5 Urdu semirigid ureteroscope, but it was only able to get to the mid ureter. I placed a second guidewire. Over that second guidewire, I passed my flexible ureteroscope in the same fashion as previously and passed it up to the mid ureter. There, I was able to investigate and see that there was about an 8 mm stone that was blocking here. There was a little bit of edema, but it was not truly impacted. I was able to use my 200 micron holmium laser fiber and break up the stone into small fragments, which were all 1 mm in size. I was able to bypass the area where the stone was and looked up into the kidney and did not see any evidence of any stones, but there was some moderate hydronephrosis seen here. As I withdrew my scope, the stones were small enough to pass. I then offloaded my ureteroscope, unloaded my cystoscope over my guidewire, passed my open-ended catheter up the UPJ, opacifying the collecting system, measured out ureteral length and passed a 6-Urdu double-J stent with a nice coil seen in the renal pelvis and bladder. The bladder was drained. She tolerated the procedure well and went to recovery room in stable condition. She will follow up and remove her stent via the string in 5 days in the office. Questions all answered with family. By: [id number] [id number] Cantrell MD /paola
[~2020-12-03 16:00] MED LIST changes: +CIPRO500 M1 PO; +FLOMAX0.4 MG PO; +LORAZEPAM 0.50.5 MG PO; +OXYCODONE HCL 55 MG PO
[2020-12-03 16:16] VITALS: BP 158/71
[2020-12-03 16:24] LABS: URINE BILIRUBIN NEGATIVE (Negative); URINE BLOOD 2+ (Negative); URINE CLARITY CLOUDY; URINE COLOR YELLOW; URINE GLUCOSE-RANDOM NEGATIVE (Negative); URINE KETONES NEGATIVE (Negative); URINE LEUKOCYTES 2+ (Negative); URINE NITRITE NEGATIVE (Negative); URINE PROTEIN 3+ (Negative); URINE UROBILINOGEN 0.2 E.U./dl (0.2-1.0)
[2020-12-03 16:28] LABS: MUCUS None Seen strn/LPF (None Seen); SQUAMOUS 0-3 Few /LPF (0-3); URINE WBC >25 Many /HPF (0-5)
[2020-12-03 16:29] LABS: BACTERIA None Seen /HPF (None Seen); CRYSTALS None Seen /LPF (None Seen); URINE RBC 0-2 Rare /HPF (0-2); WBC CLUMPS Few (None Seen)
[2020-12-03 16:30] LABS: CASTS None Seen /LPF (None Seen)
[2020-12-03 16:41] LABS: ABSOLUTE BASOPHILS 0.1 thou/uL (0.0-0.2); ABSOLUTE MONOCYTES 0.7 thou/uL (0.0-1.2); BASOPHILS 1.1 %; MPV 8.1 fl. (7.2-11.1); WBC 11.6 thou/uL (4.0-11.0)
[2020-12-03 16:43] LABS: ABSOLUTE EOSINOPHILS 0.5 thou/uL (0.0-0.7); ABSOLUTE LYMPHOCYTES 0.9 thou/uL (0.8-5.3); ABSOLUTE NEUTROPHILS 9.4 thou/uL (1.6-8.1); EOSINOPHILS 3.9 %; HEMATOCRIT 35.8 % (37.0-47.0); HEMOGLOBIN 11.7 gm/dL (12.0-15.0); LYMPHOCYTES 7.8 %; MCH 26.3 pg (26.0-34.0); MCHC 32.7 g/dL (28.0-37.0); MCV 80.5 fL (80.0-100.0); MONOCYTES 6.1 %; NUCLEATED RBCS 0 /100WBC; PLATELET COUNT* 418 thou/uL (150-400); POLYS 81.1 %; RBC 4.44 mil/uL (4.20-5.00); RDW-CV 16.4 % (10.5-14.5)
[2020-12-03 16:50] LABS: CREATININE 1.3 mg/dL (0.6-1.3)
[2020-12-03 16:54] LABS: ALBUMIN 2.7 g/dL (3.4-5.0); TOTAL BILIRUBIN 0.4 mg/dL (<0.1-1.0); TOTAL PROTEIN 8.1 g/dL (6.4-8.2)
[2020-12-03 20:00] VITALS: BP 128/70
[2020-12-03 21:09] VITALS: BP 124/69
--- NOTE | 2020-12-04 04:13 | NUR ---
ASSESSMENT COMPLETED AND PT ORIENTED TO ROOM/POLICIES. PER VERBALIZES UNDERSTANDING. PT WITH FLUIDS INFUSING PER DR ORDER. PT MADE NPO AT MIDNIGHT EXCEPT FOR ONE HYDROCODONE AND SMALL SIP OF WATER AT 0240. PT UP AD SHYLA TO BATHROOM WITH STEADY GAIT. PT WITH OSTOMY ON LOWER ABD; APPLIANCE C/D/I. PT DOES SELF CARE ON OSTOMY. PT C/O BACK PAIN X2 AND RECEIVED HYDROCODONE 1 TAB EACH TIME. PT ABLE TO SLEEP AFTERWARDS. PT ALERT/ORIENTED X4 AND VERY TEARFUL. VITALS WNL. FREQUENTLY USED ITEMS AND CALL LIGHT WITHIN REACH. SIDERAILS UPX2. WILL CONTINUE TO MONITOR.
[2020-12-04 05:09] LABS: HEMATOCRIT 30.4 % (37.0-47.0); MCH 26.5 pg (26.0-34.0); MCHC 33.1 g/dL (28.0-37.0); MPV 8.3 fl. (7.2-11.1); RBC 3.8 mil/uL (4.20-5.00); RDW-CV 16.1 % (10.5-14.5); WBC 6.4 thou/uL (4.0-11.0)
[2020-12-04 05:16] LABS: CALCIUM 9.6 mg/dL (8.5-10.1); CREATININE 1.5 mg/dL (0.6-1.3); POTASSIUM 3.9 mmol/L (3.5-5.1)
--- NOTE | 2020-12-04 06:12 | NUR ---
PT INFORMED THAT DR ORONA NOTIFIED COVER SEAMER OF 1215 SURGERY. PT WANTED MOTHER NOTIFIED. SISTER ANSWERED SAYING MOTHER WASN'T AVAILABLE. SISTER IS LEAK INSPECTOR LIST AND SHE WAS NOTIFIED THAT PT WILL BE HAVING SURGERY AT 1215 AND SHE WAS TOLD WHAT TIME SHE NEEDED TO BE HERE. WILL CONTINUE TO MONITOR
[2020-12-04 08:00] VITALS: BP 125/71
[2020-12-04 08:16] VITALS: BP 125/71
[2020-12-04] MEDS ORDERED: OXYCODONE HCL 55 MG PO (08:45)
[2020-12-04] MEDS ORDERED: OXYBUTYNIN 5 MG5 M2 PO (08:45)
[2020-12-04] MEDS ORDERED: FLOMAX0.4 MG PO (08:45)
--- NOTE | 2020-12-04 13:21 | NUR ---
Nutrition: Pt admitted with UTI. Consult received "diabetes, obesity." Pt not in room at time of visit, 12:40. She is in surgery for ureteral stone and stent placement. Wt: 200#. Per [employer], wt was 239# in Aug - possible wt loss. Currently NPO for surgery. Labs: BG 113, alb 2.7, prealb 10.8. Will attempt to visit with pt at a leter time and discuss any questions on DM or obesity. GOALS: CHO controlled diet when clinically able. Consider mild risk at this time. RD to follow up 12/06/20.
[2020-12-04 15:19] VITALS: BP 117/83
--- NOTE | 2020-12-04 15:20 | NUR ---
PATIENT TRANSFERED BACK TO ROOM FROM PACU VIA BED ACCOMPANIED BY PACU NURSES. VITAL SIGNS WNL. SAT 96% ON ROOM AIR. C/O PAIN WITH MOVEMENT. BRUISSE TO LEFT LOWER BACK, PATIENT STATES THAT IT IS FROM A HEATING PAD. UP TO THE BATHROOM X1 ASSIST, TOLERATED WITHOUT COMPLICATIONS. BLOOD SUGAR POST-OP 90. PATIENT IS RESTING IN BED. WILL CONTINUE TO MONITOR.
--- NOTE | 2020-12-04 15:47 | NUR ---
Pt is A&O. Resides at home. Surgery today, plan dc to home post procedure today. No needs.
[2020-12-04 20:30] VITALS: BP 139/74
[2020-12-04 23:58] VITALS: BP 107/47
[2020-12-05 04:25] VITALS: BP 120/70
--- NOTE | 2020-12-05 06:47 | NUR ---
Alert and oriented x 4 and anxious. She is up to the bathroom with stand by assist to the bathroom. She has a colostomy and she does the care. She changed it this morning. She does get tearful and anxious. Vitals have been stable. L flank area is bruised. Yesterday cysto with stent replacement to rt ureter. She has been awake most of the shift.
[2020-12-05 08:00] VITALS: BP 131/86
[2020-12-05 11:30] VITALS: BP 131/86
--- NOTE | 2020-12-05 13:04 | NUR ---
PT DISCHARGED HOME WITH ALL BELONGINGS ACCOMAPNIED BY HER SISTER. PT HAS GOOD UNDERSTANDING OF HER DISCHARGE INSTRUCTIONS. PT DENIED PAIN ON DISCHARGE. PT GIVEN SCRIPTS TO GET AT HER PHARMACY. PT DISCHARGED HOME.
== END 2020-12-05 13:00 | disposition home or self-care (01) ==
LOC: M.ERS 16:00 → M.TBA-ER 18:05 → M.ORTHSURG 21:10
PROVIDERS: Emergency Medicine; Family Medicine; ADMIT Internal Medicine; ATTEND Internal Medicine
DX: R10.9 Unspecified abdominal pain (principal); Z20.822 Contact with and (suspected) exposure to COVID-19; N20.0 Calculus of kidney; E87.1 Hypo-osmolality and hyponatremia; E78.5 Hyperlipidemia, unspecified; I10 Essential (primary) hypertension; J98.4 Other disorders of lung; E66.01 Morbid (severe) obesity due to excess calories; Z68.41 Body mass index [BMI] 40.0-44.9, adult; E11.9 Type 2 diabetes mellitus without complications; Z79.84 Long term (current) use of oral hypoglycemic drugs; Z79.899 Other long term (current) drug therapy